=== PATIENT | male | born 1935 | race Caucasian/White ===

== ENCOUNTER 2018-11-23 09:46 | Emergency (ER) | payer MEDICARE ==
[~2018-11-23] VITALS: Ht 172.7 cm; Wt 75.3 kg
[~2018-11-23 09:46] MED LIST: ACET325 PO; AMLO10 PO; AMLO5 PO; ASPI325EC PO; ASPI81CH; ATOR40TA; CHOL10002 PO; CLOP75; Co Q-10300 MG PO; Coq-10100 MG PO; DHEA PO; DHEA50 MG PO; FAMO20 PO; IMDUR PO; ISOMON30 PO; LOSA25 PO; METO25ER; METO25ER PO; MULVITMIND PO; NAPR375 PO; Nitrostat0.4 MG SL; OMEGA 3-6-9 CO400 MG PO; PRAV20; PRAV20 PO; PROBIOTIC250 MG PO; PROSTATE HEALT1 EACH PO; RAMI2.5; Red Yeast Rice600 MG PO; TAMS.4ER PO; TESTOSTERONE PO
[2018-11-23] MEDS ORDERED: Isosorbide Mono30 MG PO (10:14)
[2018-11-23] MEDS ORDERED: Pravachol40 MG PO (10:15)
[2018-11-23 10:22] LABS: BASOPHILS ABSOLUTE AUTO 0.08 K/mm3 (0.00-0.23); BASOPHILS PERCENT AUTO 1 % (0-2); EOSINOPHILS ABSOLUTE AUTO 0.23 K/mm3 (0.00-0.68); EOSINOPHILS PERCENT AUTO 2 % (0-6); Hematocrit 48.1 % (37.0-53.0); Hemoglobin 15.9 g/dL (13.5-17.5); IMMATURE GRAN ABSOLUTE AUTO 0.04 K/mm3 (0.00-0.10); IMMATURE GRAN PERCENT AUTO 0 % (0-1); LYMPHOCYTES ABSOLUTE AUTO 4.07 K/mm3 (0.84-5.20); LYMPHOCYTES PERCENT AUTO 38 % (21-46); MONOCYTES ABSOLUTE AUTO 0.46 K/mm3 (0.16-1.47); MONOCYTES PERCENT AUTO 4 % (4-13); Mean Corpuscular HGB 30.9 pg (26.0-34.0); Mean Corpuscular HGB Conc 33.1 g/dL (31.5-36.5); Mean Corpuscular Volume 93 fL (80-100); Mean Platelet Volume 9.3 fL (9.1-12.4); NEUTROPHILS ABSOLUTE AUTO 5.71 K/mm3 (1.96-9.15); NEUTROPHILS PERCENT AUTO 54 % (41-73); Platelet Count 238 K/mm3 (150-400); RDW Coefficient Variation 12.7 % (11.7-14.2); RDW Standard Deviation 43.7 fL (35.1-46.3); Red Blood Cell Count 5.15 M/mm3 (4.30-5.90); White Blood Cell Count 10.59 K/mm3 (4.00-11.30)
[2018-11-23] MEDS ORDERED: ZYRTEC10 M2 PO (10:36)
[2018-11-23] MEDS ORDERED: THERA1 EACH PO (10:39)
[2018-11-23 10:48] LABS: Alanine Aminotransfer (ALT/SGP 28 U/L (12-78); Albumin, Blood 3.9 g/dL (3.4-5.0); Albumin/Globulin Ratio 1.1 (0.8-1.8); Alk Phos 90 U/L (50-136); Anion Gap 7 mmol/L (6-16); Aspartate Aminotrans (AST/SGOT 18 U/L (12-37); Bilirubin, Total 0.4 mg/dL (0.1-1.0); Blood Urea Nitrogen 29 mg/dL (8-24); Bun/Creatinine Ratio 19.9 (12.0-20.0); CO2, Blood 22 mmol/L (21-32); Calcium, Blood 8.8 mg/dL (8.5-10.1); Chloride, Blood 109 mmol/L (98-108); Creatinine, Blood 1.46 mg/dL (0.60-1.20); Globulin, Blood 3.7 g/dL (2.2-4.0); Glomerular Filtration Rate 49 (60-); Glucose, Blood 103 mg/dL (70-99); Potassium, Blood 4.5 mmol/L (3.5-5.5); Sodium, Blood 138 mmol/L (136-145); Total Protein, Blood 7.6 g/dL (6.4-8.2); Troponin I <0.015 ng/mL (0.000-0.040)
== END 2018-11-23 12:18 | disposition home or self-care (01) ==
LOC: ER 09:46
PROVIDERS: Emergency Medicine
DX: I10 Essential (primary) hypertension (principal); Z88.0 Allergy status to penicillin; Z88.7 Allergy status to serum and vaccine; Z79.899 Other long term (current) drug therapy; Z79.82 Long term (current) use of aspirin; E78.5 Hyperlipidemia, unspecified; K21.9 Gastro-esophageal reflux disease without esophagitis
CPT/HCPCS: 36415; 80053; 83880; 84484; 85025; 93005; 93010; 99283-25

== ENCOUNTER → 2022-02-24 | Outpatient (CLI) | payer OTHER ==
[~2022-02-24] MED LIST changes: +Isosorbide Mono30 MG PO; +Pravachol40 MG PO; +THERA1 EACH PO; +ZYRTEC10 M2 PO
== END ==
LOC: PLD 14:45 → LAB SHORT 14:45
DX: D23.30 Other benign neoplasm of skin of unspecified part of face (principal)
CPT/HCPCS: 88305

== ENCOUNTER 2022-04-18 10:57 | Inpatient (IN) | payer OTHER ==
[~2022-04-18] VITALS: Ht 172.7 cm; Wt 77.0 kg
[2022-04-18 11:40] LABS: BASOPHILS ABSOLUTE AUTO 0.06 K/mm3 (0.00-0.23); BASOPHILS PERCENT AUTO 1 % (0-2); EOSINOPHILS ABSOLUTE AUTO 0.37 K/mm3 (0.00-0.68); EOSINOPHILS PERCENT AUTO 4 % (0-6); Hematocrit 42.7 % (37.0-53.0); Hemoglobin 14.7 g/dL (13.5-17.5); IMMATURE GRAN ABSOLUTE AUTO 0.04 K/mm3 (0.00-0.10); IMMATURE GRAN PERCENT AUTO 0 % (0-1); LYMPHOCYTES ABSOLUTE AUTO 3.81 K/mm3 (0.84-5.20); LYMPHOCYTES PERCENT AUTO 40 % (21-46); MONOCYTES ABSOLUTE AUTO 0.33 K/mm3 (0.16-1.47); MONOCYTES PERCENT AUTO 4 % (4-13); Mean Corpuscular HGB 31.1 pg (26.0-34.0); Mean Corpuscular HGB Conc 34.4 g/dL (31.5-36.5); Mean Corpuscular Volume 90 fL (80-100); Mean Platelet Volume 9.5 fL (9.1-12.4); NEUTROPHILS ABSOLUTE AUTO 4.85 K/mm3 (1.96-9.15); NEUTROPHILS PERCENT AUTO 51 % (41-73); Platelet Count 210 K/mm3 (150-400); RDW Coefficient Variation 12.3 % (11.7-14.2); RDW Standard Deviation 40.7 fL (35.1-46.3); Red Blood Cell Count 4.73 M/mm3 (4.30-5.90); White Blood Cell Count 9.46 K/mm3 (4.00-11.30)
[2022-04-18 11:57] LABS: Albumin, Blood 3.7 g/dL (3.4-5.0); Albumin/Globulin Ratio 1.1 (0.8-1.8); Bilirubin, Total 0.7 mg/dL (0.1-1.0); Calcium, Blood 8.9 mg/dL (8.5-10.1); Creatinine, Blood 1.45 mg/dL (0.60-1.20); Globulin, Blood 3.3 g/dL (2.2-4.0); Potassium, Blood 4.2 mmol/L (3.5-5.5)
--- NOTE | 2022-04-18 16:48 | NUR ---
ASSUMED CARE: PT ARRIVES ON RA WITH HR IN 30S-40S WITH BIGEMINY PVCS AT TIMES. ELEVATED BP NOTED. PT DENIES CHEST PAIN, DIZZINESS, SOB, OR VISUAL CHANGES. DAUGHTER AT BEDSIDE. BRUISING NOTED, SCATTERED BILATERAL ARMS. DENIES FURTHER NEEDS OR CONCERNS AT THIS TIME.
--- NOTE | 2022-04-18 17:22 | NUR ---
CALL TO DR PARSON REGARDING PT'S BP. REMAINS ELEVATED DESPITE DOSE OF HYDRALIZINE GIVEN. SEE NEW ORDERS. DR INSTRUCTS TO GIVE MEDICATION AN HOUR AND CONTACT HER IF STILL ELEVATED
--- NOTE | 2022-04-18 18:01 | NUR ---
SHIFT SUMMARY: SECOND MEDICATION GIVEN TO TREAT BP. WAITING AN HOUR FOR RESULT AND IF NO IMPROVEMENT WILL CALL HOSPITALIST FOR FURTHER INSTRUCTIONS. DENIES CHEST PAIN, DIZZINESS, OR VISUAL ISSUES. PT HAS BEEN UP TO RESTROOM WITH ASSISTANCE. DENIES NEEDS OR CONCERNS. VISITORS AT BEDSIDE.
[2022-04-19 03:31] LABS: Hematocrit 43.9 % (37.0-53.0); Hemoglobin 15.3 g/dL (13.5-17.5); Mean Corpuscular HGB 31.1 pg (26.0-34.0); Mean Corpuscular HGB Conc 34.9 g/dL (31.5-36.5); Mean Corpuscular Volume 89 fL (80-100); Mean Platelet Volume 9.5 fL (9.1-12.4); Platelet Count 220 K/mm3 (150-400); RDW Coefficient Variation 12.1 % (11.7-14.2); RDW Standard Deviation 40.2 fL (35.1-46.3); Red Blood Cell Count 4.92 M/mm3 (4.30-5.90); White Blood Cell Count 13.22 K/mm3 (4.00-11.30)
[2022-04-19 03:54] LABS: Bun/Creatinine Ratio 19.7 (12.0-20.0); Creatinine, Blood 1.37 mg/dL (0.60-1.20); Magnesium, Blood 2.3 mg/dL (1.6-2.4); Potassium, Blood 4.2 mmol/L (3.5-5.5)
[2022-04-19 04:25] LABS: BAND PERCENT MAN 2 % (0-8); BASOPHILS PERCENT MAN 0 % (0-2); EOSINOPHILS ABSOLUTE MAN 0.66 K/mm3 (0.00-0.68); EOSINOPHILS PERCENT MAN 5 % (0-6); LYMPHOCYTES % ATYPICAL MANUAL 2 % (0-0); LYMPHOCYTES ABSOLUTE MAN 4.62 K/mm3 (0.84-5.20); LYMPHOCYTES PERCENT MAN 33 % (21-46); MONOCYTES ABSOLUTE MAN 0.92 K/mm3 (0.16-1.47); MONOCYTES PERCENT MAN 7 % (4-13); SEG NEUTROPHILS PERCENT MAN 51 % (41-73); TOTAL CELLS COUNTED 100
--- NOTE | 2022-04-19 04:42 | NUR ---
SHIFT SUMMARY PT IS A&0X4, MOVES IND IN BED, IS SBA FOR CORD MANAGMENT W/ AMBULATION, AND CALLS APPROPRAITELY. PT HAS BEEN SB 36-60'S THIS SHIFT W/ FREQUENT PVC'S AND DENIES DIZZINESS, ANGINA, OR SOB. HE IS ON ROOM AIR W/ SPO2>90%. BED IS IN LOW, BED ALARM IS ON, AND CALL LIGHT IN REACH. WILL CONTINUE TO MONITOR UNTIL SHIFT REPORT IS GIVEN TO THE ONCOMING SHIFT RN. SEE NOTES FOR ANY UPDATES.
--- NOTE | 2022-04-19 19:31 | NUR ---
SHIFT SUMMARY PT AOX4 T/O DAY, INDEPENDENT IN ROOM WITH NURSE PRESENT. DENIES CP, DENIES SOB. DENIES ANY SYMPTOMS SUCH DIZZINESS, LIGHTHEADEDNESS, CP WITH EPISODES OF HR DOWN TO 40 BPM. HR 40'S-70'S T/O SHIFT, INCREASED WHEN UP IN ROOM OR WALKING AROUND UNIT. APPEARS TO MAINTAIN SINUS LAM, 1 DEGREE BLOCK. FAMILY CAME TO SEE PT TODAY. DR BARBOSA TO BEDSIDE THIS EVENING TO SEE PT FOR CONSULT AND DISCUSS CONTINUED PLAN. THIS RN SPEAKS TO DR PARSON AT DR BARBOSA REQUEST REGARDING POSSIBLE CAROTID IMAGING WELL ECHO AND ZIO PATCH FOR [address] PARSON AGREEABLE WITH PLAN, ORDERS PLACED FOR ECHO AND CAROTID IMAGING. ZIO PATCH ORDER REFERRED TO NOC SCRIBING MACHINE OPERATOR CRYSTAL D/T THIS RN UNABLE TO FIND MATCHING ORDER IN [employer].
--- NOTE | 2022-04-20 03:14 | NUR ---
DR. VOGT CALLED WHILE THE PT WAS SLEEPING HIS HR DROPPED DOWN TO THE LOW 30'S AND WAS SB. AN ORDER OF ATROPINE WAS OBTAINED AND IS NOW AT THE BEDSIDE. SEE NOTES FOR ANY UPDATES.
--- NOTE | 2022-04-20 05:52 | NUR ---
SHIFT [facility] PT IS A&OX4, IND IN THE ROOM, HAS BEEN SB 30'S-50'S ON TELE, AND 02 HAS REMAINED >90% RA. PT DENIES ANGINA, SOB, PAIN, AND NUMBNESS AND TINGLING. HE HAS ATROPINE AT THE BEDSIDE FOR A HR LESS THAN 30BPM. PT IS COOPERATIVE AND CALLS APPROPRIATELY. BED IN LOW AND CALL LIGHT IS IN REACH. WILL CONTINUE TO MONITOR UNTIL SHIFT REPORT IS GIVEN TO THE ONCOMING SHIFT RN. SEE NOTES FOR ANY UPDATES.
[2022-04-20] MEDS ORDERED: AMLO5 PO (12:20)
--- NOTE | 2022-04-20 14:10 | NUR ---
UPDATE DISCHARGE INSTRUCTIONS PROVIDED TO PT. PT INSTRUCTED TO GO [facility] TO HAVE ZIO PATCH PLACED PER ORDERS. DR. BARBOSA OK WITH PT TO WAIT UNTIL TOMORROW TO RECEIVE PATCH AT OUTPATIENT CLINIC. PT EDUCATED ON MEDICATIONS. ALL QUESTIONS ANSWERED. PT'S DAUGHTER CALLED AND UPDATED HE REQUESTED. PT TAKEN OUT BY WC.
== END 2022-04-20 14:24 | disposition home or self-care (01) | DRG 309 ==
LOC: ER 10:57 → PCU 15:16
PROVIDERS: Physician Assistant; ADMIT Internal Medicine
DX: I44.2 Atrioventricular block, complete (principal); G45.9 Transient cerebral ischemic attack, unspecified; R00.1 Bradycardia, unspecified; I16.0 Hypertensive urgency; K21.9 Gastro-esophageal reflux disease without esophagitis; N40.0 Benign prostatic hyperplasia without lower urinary tract symptoms; E78.5 Hyperlipidemia, unspecified; I25.10 Atherosclerotic heart disease of native coronary artery without angina pectoris; I12.9 Hypertensive chronic kidney disease with stage 1 through stage 4 chronic kidney disease, or unspecified chronic kidney disease; M19.90 Unspecified osteoarthritis, unspecified site; N18.30 Chronic kidney disease, stage 3 unspecified; H91.90 Unspecified hearing loss, unspecified ear; Z96.653 Presence of artificial knee joint, bilateral; I25.2 Old myocardial infarction; Z90.89 Acquired absence of other organs; Z98.890 Other specified postprocedural states; Z88.0 Allergy status to penicillin; Z88.7 Allergy status to serum and vaccine; Z79.82 Long term (current) use of aspirin; Z79.899 Other long term (current) drug therapy
CPT/HCPCS: 36415; 70450; 80048; 80053; 83735; 84443; 84484; 85025; 93005; 93010; 93306; 93880; 99285-25; A9270

== ENCOUNTER 2022-05-25 10:51 | Day surgery (SDC) | payer OTHER ==
[~2022-05-25] VITALS: Ht 172.7 cm; Wt 78.0 kg
[~2022-05-25 10:51] MED LIST changes: +NITR.4SL SL
--- NOTE | 2022-05-25 12:32 | NUR ---
PT AMBULATED TO RESTROOM W/O ASSISTANCE. PT NOW RESTING IN BED. AND DAUGHTER AT BEDSIDE.
--- NOTE | 2022-05-25 13:06 | NUR ---
DR MCINTYRE AT BEDSIDE DISCUSSING PROCEDURE W/ PT AND FAMILY.
--- NOTE | 2022-05-25 18:23 | NUR ---
SHIFT SUMMARY PT HAS BEEN RESTING IN ROOM SINCE ARRIVAL. PT AMBULATED TO RESTROOM WITH ASSISTANCE UPON ARRIVAL. PT HAS BEEN RECEPTIVE TO EDUCATION AND HAS VERBALIZED AN UNDERSTANDING OF PHYSICAL MOBILITY RESTRICTIONS. ICE PACK WAS PLACED OVER OPERATIVE SITER PER PROVIDERS ORDER. ALL VITAL SIGNS STABLE, NO CHANGE IN CONDITION.
--- NOTE | 2022-05-26 05:55 | NUR ---
SHIFT SUMMARY A/OX4, SBA TO BATHROOM. SPO2 >92% ON RA. TELE PACED IN THE 60S. BP STABLE; DENIES CHEST PAIN/PRESSURE. DRESSING TO LCW C/D/I, ICE PACK TO AREA T/O NIGHT. VSS, NO ACUTE CHANGES AT THIS TIME. BED IN LOWEST POSITION WITH CALL LIGHT IN REACH. WILL CONTINUE TO MONITOR AND REPORT TO ONCOMING RN.
[2022-05-26] MEDS ORDERED: OMEP20ER PO (11:06)
[2022-05-26] MEDS ORDERED: LACT PO (11:07)
--- NOTE | 2022-05-26 12:07 | NUR ---
DISCHARGE SUMMARY PT WAS TRANSPORTED BY WHEELCHAIR TO PERSONAL VEHICLE. ALL PERSONAL BELONGINGS AND DISCHARGE INSTRUCTIONS WERE IN THE PT'S POSSESSION AT THE TIME OF TRANSPORT. ALL QUESTIONS AND CONCERNS WERE ADDRESSED PRIOR TO DISCHARGE. PT STATED AN UNDERSTANDING OF ALL DISCHARGE INSTRUCTIONS.
== END 2022-05-26 11:52 | disposition home or self-care (01) ==
LOC: MHTC 10:51 → PCU 15:01 → MHTC 05-26 11:52
DX: I44.2 Atrioventricular block, complete (principal); I44.1 Atrioventricular block, second degree; I45.5 Other specified heart block; I49.5 Sick sinus syndrome; K21.9 Gastro-esophageal reflux disease without esophagitis; N40.0 Benign prostatic hyperplasia without lower urinary tract symptoms; E78.5 Hyperlipidemia, unspecified; I25.2 Old myocardial infarction; I25.10 Atherosclerotic heart disease of native coronary artery without angina pectoris; N18.9 Chronic kidney disease, unspecified; I12.9 Hypertensive chronic kidney disease with stage 1 through stage 4 chronic kidney disease, or unspecified chronic kidney disease
CPT/HCPCS: 33228; 71046; 99152; 99153; A9270; C1785; C1894; C1898; J0360; J1644; J2250; J3010; J3370; J7040; Q9967

== ENCOUNTER 2023-04-16 05:26 | Emergency (ER) | payer OTHER ==
[~2023-04-16] VITALS: Ht 172.7 cm; Wt 74.8 kg
[~2023-04-16 05:26] MED LIST changes: +LACT PO; +OMEP20ER PO
[2023-04-16 05:52] LABS: Hematocrit 46.7 % (37.0-53.0); Hemoglobin 16.4 g/dL (13.5-17.5); Mean Corpuscular HGB 31.5 pg (26.0-34.0); Mean Corpuscular HGB Conc 35.1 g/dL (31.5-36.5); Mean Corpuscular Volume 90 fL (80-100); Mean Platelet Volume 8.8 fL (9.1-12.4); Platelet Count 218 K/mm3 (150-400); RDW Coefficient Variation 12.4 % (11.7-14.2); RDW Standard Deviation 41.1 fL (35.1-46.3); White Blood Cell Count 15.14 K/mm3 (4.00-11.30)
[2023-04-16 06:05] LABS: Albumin, Blood 3.9 g/dL (3.4-5.0); Albumin/Globulin Ratio 1.1 (0.8-1.8); Bilirubin, Total 0.8 mg/dL (0.1-1.0); Bun/Creatinine Ratio 24.8 (12.0-20.0); Calcium, Blood 9.2 mg/dL (8.5-10.1); Creatinine, Blood 1.29 mg/dL (0.60-1.20); Globulin, Blood 3.5 g/dL (2.2-4.0); Total Protein, Blood 7.4 g/dL (6.4-8.2)
[2023-04-16 07:10] LABS: Source, Urine Clean Catch
[2023-04-16 07:19] LABS: Appearance, Urine Clear (Clear); Bilirubin, Urine Neg (Neg); Blood, Urine Neg (Neg); Glucose Qualitative, Urine Neg (Neg); Ketones, Urine Neg (Neg); Leukocyte Esterase, Urine Neg (Neg); Nitrite, Urine Neg (Neg); Protein, Urine Neg (Neg); Urobilinogen, Urine NORM (Normal); pH, Urine 6.5 (5.0-8.0)
[2023-04-16 07:21] LABS: Color, Urine No Color (P-Yellow)
[2023-04-16 07:23] LABS: BASOPHILS ABSOLUTE MAN 0.15 K/mm3 (0.00-0.23); BASOPHILS PERCENT MAN 1 % (0-2); EOSINOPHILS ABSOLUTE MAN 0.15 K/mm3 (0.00-0.68); EOSINOPHILS PERCENT MAN 1 % (0-6); LYMPHOCYTES % ATYPICAL MANUAL 2 % (0-0); LYMPHOCYTES ABSOLUTE MAN 6.51 K/mm3 (0.84-5.20); LYMPHOCYTES PERCENT MAN 41 % (21-46); MONOCYTES PERCENT MAN 2 % (4-13); NEUTROPHILS ABSOLUTE MAN 8.02 K/mm3 (1.96-9.15); SEG NEUTROPHILS PERCENT MAN 53 % (41-73); TOTAL CELLS COUNTED 100
[2023-04-16 08:35] LABS: Influenza A, PCR NEGATIVE (NEGATIVE); Influenza B, PCR NEGATIVE (NEGATIVE); Resp Syncytial Virus, PCR NEGATIVE (NEGATIVE); SARS-Cov-2 (COVID-19) PCR, MMC NEGATIVE (NEGATIVE)
[2023-04-16 09:45] VITALS: BP 119/85
[2023-04-16] MEDS ORDERED: METO25ER PO (10:51)
[2023-04-16] MEDS ORDERED: ELIQUIS2.5 MG PO (10:51)
== END 2023-04-16 11:41 | disposition home or self-care (01) ==
LOC: ER 05:26
PROVIDERS: Emergency Medicine
DX: I48.91 Unspecified atrial fibrillation (principal); Z20.822 Contact with and (suspected) exposure to COVID-19; I10 Essential (primary) hypertension; Z79.82 Long term (current) use of aspirin; Z79.899 Other long term (current) drug therapy; Z88.0 Allergy status to penicillin; Z88.7 Allergy status to serum and vaccine; Z95.0 Presence of cardiac pacemaker
CPT/HCPCS: 0241U; 71045; 80053; 81003; 84484; 85025; 93005; 93010; 99284-25; J7030